=== PATIENT | male | born 1955 | race Caucasian/White ===

== ENCOUNTER 2022-12-26 11:39 | Inpatient (IN) | payer OTHER ==
[~2022-12-26] VITALS: Ht 177.8 cm; Wt 100.9 kg
[2022-12-26] VITALS (7 sets, daily range): BP systolic 144–154; BP diastolic 78–95
[2022-12-26 12:13] LABS: BASOPHILS % (AUTO) 0.7 % (0.0-2.0); EOSINOPHILS % (AUTO) 2.5 % (1.0-6.0); HEMATOCRIT 33.9 % (41-53); HEMOGLOBIN 11.1 g/dL (13.5-17.5); LYMPHOCYTES # (AUTO) 1.4 K/uL (1.0-4.8); LYMPHOCYTES % (AUTO) 14.7 % (22.0-44.0); MEAN CORPUSCULAR HEMOGLOBIN 31.7 pg (26.0-34.0); MEAN CORPUSCULAR HGB CONC 32.9 G/dL (31.0-37.0); MEAN CORPUSCULAR VOLUME 96 fL (80-100); MONOCYTES # (AUTO) 0.7 K/uL (0.1-1.0); MONOCYTES % (AUTO) 7.7 % (2.0-9.0); NEUTROPHILS % (AUTO) 74.4 % (40.0-70.0); PLATELET COUNT (AUTO) 139 K/uL (150-450); RED BLOOD CELL COUNT(AUTO) 3.52 MIL/uL (4.50-5.90); RED CELL DISTRIBUTION WIDTH 15.6 % (11.5-14.5)
[2022-12-26 12:15] LABS: COVID AG,FIA SOURCE NASAL SWAB
[2022-12-26 12:30] LABS: PROTHROMBIN TIME 10.5 SEC (9.4-11.6)
[2022-12-26] MEDS ORDERED: ONDANSETRON HCL 4 MG/2 ML VIAL IVP PRN (12:30)
[2022-12-26] MEDS ORDERED: DEXTROSE 50%-WATER 25 GM/50 ML SYRINGE IVP PRN (12:30)
[2022-12-26 12:39] LABS: CALCIUM, TOTAL 8.7 mg/dL (8.8-10.5); CREATININE 8.98 mg/dL (0.60-1.30); POTASSIUM 5.2 mmol/L (3.5-5.1)
[2022-12-26 12:41] LABS: ALBUMIN 3.5 g/dL (3.4-5.0); BILIRUBIN,TOTAL 0.6 mg/dL (0.1-1.0); TOTAL PROTEIN, SERUM 6.9 g/dL (6.4-8.2)
[2022-12-26] MEDS ORDERED: CARVEDILOL 3.125 MG TABLET PO ONE (13:15)
[2022-12-26] MEDS: HEPARIN SODIUM,PORCINE 5,000 UNITS/ML VIAL SQ SCH (17:43)
[2022-12-27] VITALS (18 sets, daily range): BP systolic 99–162; BP diastolic 56–86
[2022-12-27] MEDS: ACETAMINOPHEN 325 MG TABLET PO PRN ×2 (01:22→13:07)
[2022-12-27] MEDS: CARVEDILOL 12.5 MG TABLET PO SCH ×3 (01:22→20:17)
[2022-12-27] MEDS: LOSARTAN POTASSIUM 25 MG TABLET PO SCH ×3 (01:22→20:17)
[2022-12-27] MEDS: DOCUSATE SODIUM 100 MG CAPSULE PO SCH ×3 (01:22→20:17)
[2022-12-27] MEDS ORDERED: SODIUM CHLORIDE 0.9% 1,000 ML ONE (07:42)
[2022-12-27] MEDS: HEPARIN SODIUM,PORCINE 5,000 UNITS/ML VIAL SQ SCH ×4 (08:00→23:10)
[2022-12-27 11:01] LABS: CALCIUM, TOTAL 8.6 mg/dL (8.8-10.5); CREATININE 3.48 mg/dL (0.60-1.30); POTASSIUM 3.3 mmol/L (3.5-5.1)
[2022-12-27] MEDS: ATORVASTATIN CALCIUM 40 MG TABLET PO SCH (13:06)
[2022-12-27] MEDS: FAMOTIDINE 20 MG TABLET PO SCH (13:07)
[2022-12-27] MEDS: ASPIRIN 81 MG CHEWABLE TABLET PO SCH (13:07)
[2022-12-27] MEDS: INSULIN LISPRO 100 UNITS/ML SQ PRN (17:39)
[2022-12-27 19:16] LABS: GLUCOMETER DEV NAME(LOC) 5S.2B; GLUCOSE,POINT OF CARE 200 MG/DL (70-110)
[2022-12-28 00:46] VITALS: BP 129/63
[2022-12-28 05:55] VITALS: BP 129/61
[2022-12-28 08:00] VITALS: BP 136/66
[2022-12-28] MEDS: DOCUSATE SODIUM 100 MG CAPSULE PO SCH (08:43)
[2022-12-28] MEDS: ASPIRIN 81 MG CHEWABLE TABLET PO SCH (08:44)
[2022-12-28] MEDS: CARVEDILOL 12.5 MG TABLET PO SCH (08:45)
[2022-12-28] MEDS: ATORVASTATIN CALCIUM 40 MG TABLET PO SCH (08:45)
[2022-12-28] MEDS: FAMOTIDINE 20 MG TABLET PO SCH (08:45)
[2022-12-28] MEDS: HEPARIN SODIUM,PORCINE 5,000 UNITS/ML VIAL SQ SCH ×2 (08:46→16:00)
[2022-12-28] MEDS: LOSARTAN POTASSIUM 25 MG TABLET PO SCH (08:46)
[2022-12-28] MEDS ORDERED: SPIRONOLACTONE 25 MG TABLET PO SCH (09:00)
[2022-12-28] MEDS: INSULIN LISPRO 100 UNITS/ML SQ PRN (12:17)
[2022-12-28 13:07] VITALS: BP 120/61
[2022-12-28] MEDS ORDERED: ATOR40TA71 PO (16:01)
[2022-12-28] MEDS ORDERED: ASPI81 PO (16:01)
[2022-12-28] MEDS ORDERED: CARV12 PO (16:01)
[2022-12-28] MEDS ORDERED: LOSA25TA2 PO (16:01)
[2022-12-28 18:57] LABS: GLUCOMETER DEV NAME(LOC) 5S.2B; GLUCOSE,POINT OF CARE 207 MG/DL (70-110)
== END 2022-12-28 17:00 | disposition home or self-care (01) | DRG 291 ==
LOC: EMS 11:40 → AHU 13:55 → 5S 18:01
PROVIDERS: ADMIT Internal Medicine; ATTEND Internal Medicine
PROC: 5A09357 Assistance with Respiratory Ventilation, Less than 24 Consecutive Hours, Continuous Positive Airway Pressure (ICD-10-PCS; principal; 2022-12-26)
PROC: 5A1D70Z Performance of Urinary Filtration, Intermittent, Less than 6 Hours Per Day (ICD-10-PCS; 2022-12-26)
PROC: 5A1D70Z Performance of Urinary Filtration, Intermittent, Less than 6 Hours Per Day (ICD-10-PCS; 2022-12-27)
DX: I13.2 Hypertensive heart and chronic kidney disease with heart failure and with stage 5 chronic kidney disease, or end stage renal disease (principal); I50.23 Acute on chronic systolic (congestive) heart failure; J96.21 Acute and chronic respiratory failure with hypoxia; N18.6 End stage renal disease; I42.9 Cardiomyopathy, unspecified; Z20.822 Contact with and (suspected) exposure to COVID-19; E66.9 Obesity, unspecified; E11.22 Type 2 diabetes mellitus with diabetic chronic kidney disease; D69.6 Thrombocytopenia, unspecified; E11.65 Type 2 diabetes mellitus with hyperglycemia; E78.5 Hyperlipidemia, unspecified; E87.5 Hyperkalemia; I25.10 Atherosclerotic heart disease of native coronary artery without angina pectoris; I25.2 Old myocardial infarction; Z79.4 Long term (current) use of insulin; Z82.49 Family history of ischemic heart disease and other diseases of the circulatory system; Z83.3 Family history of diabetes mellitus; Z95.810 Presence of automatic (implantable) cardiac defibrillator; Z99.2 Dependence on renal dialysis; Z68.31 Body mass index [BMI] 31.0-31.9, adult; Z88.8 Allergy status to other drugs, medicaments and biological substances; Z79.899 Other long term (current) drug therapy
CPT/HCPCS: 71045; 80048; 80053; 82962; 83880; 84484; 85025; 85610; 85730; 86709; 90935; 93005; 93306; 94660; 99291; G0378; J1644; J7030; 36415-L1; 36415-TC